=== PATIENT | female | born 1980 | race Caucasian/White ===

== ENCOUNTER → 2017-07-14 10:21 | Outpatient (CLI) | payer OTHER, SELFPAY ==
--- NOTE | 2017-07-14 10:40 | MRI_ITS ---
STUDY: MRI LEFT HIP ARTHROGRAM REASON FOR EXAM: Female, 37 years old. Pain. TECHNIQUE: Standardized fat and water weighted pulse sequences were obtained in all 3 orthogonal planes following the intra-articular demonstration of contrast. COMPARISON: None. FINDINGS: Normal hip joint without articular joint space narrowing. Normal acetabulum. Normal labrum. Normal femoral head. Normal femoral neck and intratrochanteric region. There is no demonstrated fracture. Normal gluteus minimus and iliopsoas tendons and distal insertions. There is edema and small diminished signal calcification at the trochanteric bursa adjacent to the insertion of the gluteus medius, series 4 image 07/17. There is no iliopsoas or iliopectineal bursitis. Normal superior and inferior pubic rami. Normal pubic symphysis. Normal ischial tuberosity. Normal origin of the hamstring tendons. Normal visualized iliac wing, sacroiliac joint, and sacral ala. Normal visualized soft tissue structures of the pelvis. MRI/Lower Ext/Jt Only/W Contrast IMPRESSION: No fracture or avascular necrosis. No tear of the acetabular labrum. 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 Electronically Signed: Lester Dale MD at 14:24 EDT , Service support ,
--- NOTE | 2017-07-14 10:44 | RAD_ITS ---
CLINICAL HISTORY: Female, 37 years old. Chronic left hip pain. PROCEDURE: ARTHROGRAM - LEFT HIP CONSENT: The procedure as well as the benefits and possible complications were described to the patient. Informed consent was obtained. FLUOROSCOPY TIME (if supplied): (0:28) minutes/seconds Injection Information: 10 cc dilute Magnevist. Number of images obtained: 2 TECHNIQUE: (All elements of maximal sterile barrier technique followed, including US elements as applicable) The patient was in the supine position. The overlying skin was prepped and draped in usual sterile fashion. Following local anesthetic complication and under direct radiographic guidance, a 22-gauge spinal needle was placed into the joint. 2 cc of Isovue 300 was injected for confirmation. Following this, 10 cc of dilute Magnevist were injected. The patient tolerated the procedure well. RAD/Arthrogram Hip w/ MRI IMPRESSION: Successful intra-articular injection of 10 cc of dilute Magnevist for MRI scanning. Electronically Signed: Bay Reed MD at 11:11 EDT Tel [phone], Service support ,
== END ==
PROVIDERS: Family Provider Internal Medicine; PCP Internal Medicine; Visit Provider Orthopaedic Surgery
DX: M25.552 Pain in left hip (principal)
CPT/HCPCS: 27093; 73722; 77002; A9577; Q9967